=== PATIENT | male | born 1955 | race Caucasian/White ===

== ENCOUNTER 2017-09-05 02:15 | Emergency (ER) | END 2017-09-05 04:08 | disposition home or self-care (01) ==

== ENCOUNTER 2018-12-20 19:41 | Emergency (ER) | payer MEDICAID, OTHER ==
[~2018-12-20] VITALS: Ht 157.5 cm; Wt 67.2 kg
[~2018-12-20 19:41] MED LIST: NO MEDS TAKEN
[2018-12-20 19:43] VITALS: Ht 157.5 cm; Wt 67.2 kg
--- NOTE | 2018-12-20 20:10 | ERD ---
ER Documentation Chief Complaint Chief Complaint Pt reports sitting down when L chest pain rad to L arm and back started HPI 63-year-old male presenting with family after he felt left-sided chest pain today after meal. He states it was a pressure-like pain that radiated to his left arm and his back. The pain lasted for about 1 hour and has since subsided. At the time he did have shortness of breath but denies having any diaphoresis, nausea, vomiting, dizziness, focal weakness or numbness. He did take an Advil prior to arrival. He has never felt pain like this before. He denies any recent illnesses, fevers, chills, travel, immobilization, or recent surgeries. ROS All systems reviewed and are negative except as per history of present illness. Medications Home Meds Discontinued Reported Medications [ No Meds Taken] No Conflict Check 08/28/10 Allergies Allergies: Coded Allergies: No Known Drug Allergy (Unverified Allergy, Mild, 12/21/18) PMhx/Soc Medical and Surgical Hx: pt denies Medical Hx, pt denies Surgical Hx History of Surgery: No Anesthesia Reaction: No Hx Neurological Disorder: No Hx Respiratory Disorders: No Hx Cardiac Disorders: No Hx Psychiatric Problems: No Hx Alcohol Use: No Hx Substance Use: No Hx Tobacco Use: No Smoking Status: Former smoker FmHx Family History: diabetes Physical Exam Vitals Vital Signs Date Temp Pulse Resp B/P (MAP) Pulse Ox O2 O2 Flow FiO2 Time Delivery Rate 12/21/18 68 16 133/73 98 Room Air 00:05 (93) 12/20/18 61 16 114/78 97 Room Air 23:05 (90) 12/20/18 51 16 122/71 97 Room Air 22:06 (88) 12/20/18 52 16 148/81 98 Room Air 20:04 (103) 12/20/18 98.5 68 24 167/77 97 19:43 (107) Physical Exam Const: No acute distress Head: Atraumatic Eyes: Normal Conjunctiva, PERRLA ENT: Normal External Ears, Nose and Mouth. Neck: Full range of motion. No meningismus. Resp: Clear to auscultation bilaterally Cardio: Regular rate and rhythm, no murmurs. 2+ distal pulses in all 4 extremities Abd: Soft, non tender, non distended. Normal bowel sounds Skin: No petechiae or rashes Back: No midline or flank tenderness Ext: No cyanosis, or edema Neur: Awake and alert, normal speech, moving all extremities Psych: Normal Mood and Affect Result Diagram: 12/20/18201012/20/182010 Results 24 hrs Laboratory Tests Test 12/20/18 20:11 12/20/18 23:15 White Blood Count 7.2 10^3/ul Red Blood Count 5.34 10^6/ul Hemoglobin 14.5 g/dl Hematocrit 43.3 % Mean Corpuscular Volume 81.1 fl Mean Corpuscular Hemoglobin 27.2 pg Mean Corpuscular Hemoglobin Concent 33.5 g/dl Red Cell Distribution Width 13.4 % Platelet Count 64 10^3/UL Mean Platelet Volume 12.6 fl Immature Granulocytes % 0.300 % Neutrophils % 53.9 % Lymphocytes % 33.5 % Monocytes % 8.8 % Eosinophils % 2.4 % Basophils % 1.1 % Nucleated Red Blood Cells % 0.0 /100WBC Immature Granulocytes # 0.020 10^3/ul Neutrophils # 3.9 10^3/ul Lymphocytes # 2.4 10^3/ul Monocytes # 0.6 10^3/ul Eosinophils # 0.2 10^3/ul Basophils # 0.1 10^3/ul Nucleated Red Blood Cells # 0.0 10^3/ul Sodium Level 142 mmol/L Potassium Level 4.0 mmol/L Chloride Level 109 mmol/L Carbon Dioxide Level 24 mmol/L Anion Gap 9 Blood Urea Nitrogen 19 mg/dl Creatinine 0.73 mg/dl Est Glomerular Filtrat Rate mL/min > 60 mL/min Glucose Level 126 mg/dl Calcium Level 8.8 mg/dl Troponin I < 0.012 ng/ml < 0.012 ng/ml Procedures/MDM EMERGENT LABS AND DIAGNOSTIC STUDIES: Lab Results above were reviewed and interpreted by me. CBC: Thrombocytopenia, unclear etiology. No anemia or evidence of infection BMP: no e/o clinically significant electrolyte abnormality severe acidosis, alk alosis, renal failure, diabetic ketoacidosis Troponin within normal limits, not indicative of cardiac ischemia Repeat troponin at 3 hours normal 12-lead EKG was interpreted by Sisi Cunha MD: Sinus Bradycardia with ventricular rate of 59 beats per minute Normal axis Normal intervals No acute ST or T wave changes suggestive of acute ischemia or STEMI. Repeat EKG: Rate/Rhythm: Sinus bradycardia at 54 bpm QRS, ST, T-waves: [No changes consistent w/ acute ischemia] Impression: [No evidence of ischemia or arrhythmia] Radiology Results as interpreted by Radiology below were reviewed by Jennifer Cunha MD: Chest x-ray shows no acute abnormalities Initial Nursing notes reviewed. Previous Medical Records requested via the Electronic Health Record. EMERGENCY DEPARTMENT COURSE / MEDICAL DECISION MAKING: The patient presents with chest pain. Vitals are stable. He was noted to be bradycardic but was not symptomatic from this. For his chest pain, I considered pulmonary embolism, aortic dissection, pneumothorax among other diagnoses. Evaluation for acute coronary syndrome was performed. The HEART score was utilized for risk stratification and found to be <3. Repeat EKG and troponin @ 3 hours were unchanged. Based on this evaluation the patient's risk of major adverse cardiac events is <1%. Shared decision making occurred with patient and the decision has been made to discharge the patient for outpatient evaluation and functional study within 72 hours. Patient instructed to arrange follow up with PCP in the next 2 days and return to the ED for any new or worsening symptoms. Patient's blood pressure was elevated (>120/80) but appears stable without evidence of hypertensive emergency or urgency. The patient was counseled about the risks of hypertension and urged to pursue outpatient monitoring and therapy within a week with their primary care physician. Departure Diagnosis: Primary Impression: Chest pain Chest pain type: unspecified Qualified Codes: R07.9 - Chest pain, unspecified Condition: Stable SKIP CUNHA MD Dec 20, 2018 20:10
[2018-12-21 00:05] VITALS: BP 133/73; PULSE 68; RESP 16
== END 2018-12-21 00:06 | disposition home or self-care (01) ==
LOC: E/R 19:41
DX: R07.9 Chest pain, unspecified (principal)
CPT/HCPCS: 36415; 71045; 80048; 84484; 85025; 93005